=== PATIENT | male | born 1965 | race Two or more races ===

== ENCOUNTER 2017-08-18 11:14 | Inpatient (IN) | payer BC ==
[~2017-08-18] VITALS: Ht 165.1 cm; Wt 99.3 kg
[2017-08-18 11:37] LABS: Basophils # (auto) 0.1 uL; Basophils % (auto) 0.5 % (0.0-2.0); Eosinophils # (auto) 0.2 uL; Eosinophils % (auto) 1.3 % (0.0-7.0); Hematocrit 44.2 % (41.0-53.0); Hemoglobin 15.1 g/dL (13.5-17.5); Lymphocytes # (auto) 2.6 uL; Lymphocytes % (auto) 20.6 % (10.0-50.0); Mean Corpuscular Hemoglobin 29.7 pg (28.0-32.0); Mean Corpuscular Hgb Conc. 34.3 g/dL (32.0-36.0); Mean Corpuscular Volume 86.8 fL (80.0-100.0); Mean Platelet Volume 9.2 fL (6.9-10.8); Monocytes # (auto) 0.9 uL; Monocytes % (auto) 7.4 % (0.0-12.0); Neutrophils % (auto) 70.2 % (37.0-80.0); Nucleated Red Blood Cells % 0.1 %; Platelet Count (auto) 213 10^3/uL (140-450); White Blood Cell 12.8 10^3/uL (4.4-10.8)
[2017-08-18 11:46] LABS: INR 0.97 (0.9-1.15); Partial Thromboplastin Time 25.7 sec (22.64-33.71); Prothrombin Time 10.6 sec (9.37-12.3)
[2017-08-18] MEDS ORDERED: SODIUM CHLORIDE 0.9% 1,000 ML IV ONE (12:03)
[2017-08-18 12:15] LABS: Albumin 3.6 g/dL (3.4-5.0); BUN/Creatinine Ratio 8.7; Bilirubin, Total 1.3 mg/dL (0.2-1.0); Calcium 8.3 mg/dL (8.5-10.1); Potassium 3.1 mmol/L (3.5-5.1); Total Protein 7.8 g/dL (6.4-8.2)
[2017-08-18] MEDS ORDERED: HEPARIN SODIUM (PORCINE) 5000 UNITS/ML 1ML VIAL IV ONE (12:15)
[2017-08-18] MEDS ORDERED: cefTRIAXone 1GM/50ML D5W 50 ML IV ONE (12:30)
[2017-08-18 12:45] LABS: Urine Bilirubin Negative (Negative); Urine Blood Negative /uL (Negative); Urine Color Yellow (Yellow); Urine Glucose TRACE mg/dL (Normal); Urine Ketone Negative (Negative); Urine Nitrite Negative (Negative); Urine RBC 1 /hpf (0 - 3); Urine Squamous Epithelial Cell FEW /hpf (<5); Urine Urobilinogen Normal (Negative)
[2017-08-18] MEDS ORDERED: IODIXANOL 320MG/ML 100ML BTL IV ONE (13:57)
[2017-08-18] MEDS ORDERED: LIDOCAINE 2%HCL (LOCAL ANESTH.) INJ 20ML MDV ONE (13:57)
[2017-08-18] MEDS ORDERED: ACETAMINOPHEN 500 MG TAB PO PRN (14:00)
[2017-08-18] MEDS ORDERED: NITROGLYCERIN 0.4 MG SL TAB SL PRN ×2 (14:00→18:30)
[2017-08-18] MEDS ORDERED: PROMETHAZINE HCL 25 MG/ML 1ML IV PRN (14:00)
[2017-08-18] MEDS ORDERED: LORazepam 0.5 MG TAB PO PRN (14:00)
[2017-08-18] MEDS ORDERED: TEMAZEPAM 15 MG CAP PO PRN (14:00)
[2017-08-18] MEDS ORDERED: MORPHINE SULF INJ 2 MG/ML SYRINGE 1ML IV PRN ×3 (14:00→18:30)
[2017-08-18] MEDS ORDERED: HYDROcodone-ACET 5/325MG TAB PO PRN (14:00)
[2017-08-18] MEDS ORDERED: PANTOPRAZOLE 40 MG TAB PO ONE (14:15)
[2017-08-18] MEDS ORDERED: ENOXAPARIN SOD 100 MG/1 ML SYRINGE SC SCH (14:18)
[2017-08-18] MEDS ORDERED: ASPirin 81 mg TAB PO SCH (14:21)
[2017-08-18] MEDS ORDERED: SODIUM CHL 0.9% 50 ML ONE ×2 (15:00→16:15)
[2017-08-18] MEDS ORDERED: ANGIOMAX 250 MG VIAL IV ONE ×3 (15:00→16:15)
[2017-08-18] MEDS ORDERED: MIDAZOLAM HCL 1MG/1ML-2 ML VIAL ONE (15:02)
[2017-08-18] MEDS ORDERED: fentaNYL CITRATE 100 MCG/2 ML VL ONE (15:02)
[2017-08-18] MEDS ORDERED: IOHEXOL 350 MG/ML 100ML IJ ONE ×2 (15:11→15:47)
[2017-08-18] MEDS ORDERED: hydrALAZINE HCL 20 MG/ML VL ONE (15:31)
[2017-08-18] MEDS ORDERED: ASPirin-EC 325mg tab PO ONE (16:15)
[2017-08-18] MEDS ORDERED: CLOPIDOGREL BISULFATE 75 MG TAB PO ONE (16:15)
[2017-08-18] MEDS ORDERED: CLOPIDOGREL 300 MG TAB ONE (16:18)
[2017-08-18] MEDS ORDERED: ASPirin 325 MG TAB ONE (16:18)
[2017-08-18] MEDS ORDERED: NITROGLYCERIN 50MG/250ML 250 ML IV ONE (16:25)
[2017-08-18] MEDS ORDERED: KETOROLAC TROMETH 30 MG/ML 1ML VIAL ONE (17:52)
[2017-08-18] MEDS ORDERED: KETOROLAC TROMETH 30 MG/ML 1ML VIAL IV ONE (18:00)
[2017-08-18 19:46] VITALS: BP 147/90
[2017-08-18 20:00] VITALS: BP 147/90
[2017-08-18] MEDS: NITROGLYCERIN 0.2MG/HR TOPICAL PATCH TD SCH (20:49)
[2017-08-18] MEDS: METOPROLOL TARTRATE 25 MG TAB PO SCH ×2 (20:49→22:00)
[2017-08-18] MEDS: POTASSIUM CHL 20MEQ/100ML 100 ML IV SCH ×2 (20:55→20:56)
[2017-08-18] MEDS: SODIUM CHLOR 0.9% PF (SALINE LOCK) 10ML VIAL IV SCH ×3 (20:56→21:10)
[2017-08-18] MEDS ORDERED: POTASSIUM CHLORIDE 40 MEQ, LIDOCAINE 1% (LOCAL ANESTH.) 4 ML in SODIUM CHL 0.9% 250 ML IV ONE (21:00)
[2017-08-18] MEDS: ATORVASTATIN 20 MG TAB PO SCH (21:10)
[2017-08-19] VITALS: BP 130/82
[2017-08-19 04:00] VITALS: BP 115/70
[2017-08-19] MEDS: SODIUM CHLOR 0.9% PF (SALINE LOCK) 10ML VIAL IV SCH ×6 (06:00→21:44)
[2017-08-19 06:15] LABS: Basophils # (auto) 0 uL; Basophils % (auto) 0.2 % (0.0-2.0); Eosinophils # (auto) 0.1 uL; Eosinophils % (auto) 0.4 % (0.0-7.0); Hematocrit 41.5 % (41.0-53.0); Hemoglobin 14.3 g/dL (13.5-17.5); Lymphocytes # (auto) 1.7 uL; Lymphocytes % (auto) 10.3 % (10.0-50.0); Mean Corpuscular Hemoglobin 29.7 pg (28.0-32.0); Mean Corpuscular Hgb Conc. 34.4 g/dL (32.0-36.0); Mean Corpuscular Volume 86.4 fL (80.0-100.0); Mean Platelet Volume 9.7 fL (6.9-10.8); Monocytes # (auto) 1.3 uL; Monocytes % (auto) 7.7 % (0.0-12.0); Neutrophils # (auto) 13.4 uL; Neutrophils % (auto) 81.4 % (37.0-80.0); Platelet Count (auto) 203 10^3/uL (140-450); Red Cell Distribution Width 13.3 % (11.8-14.3); White Blood Cell 16.5 10^3/uL (4.4-10.8)
[2017-08-19 06:39] LABS: Albumin 3.4 g/dL (3.4-5.0); BUN/Creatinine Ratio 9.1; Calcium 8.4 mg/dL (8.5-10.1); Potassium 3.6 mmol/L (3.5-5.1); Total Protein 7.5 g/dL (6.4-8.2)
[2017-08-19 07:17] LABS: B-Type Natriuretic Peptide 186.46 pg/mL (0-100)
[2017-08-19 07:20] LABS: Temperature: 20.9 C (20.0-25.0)
[2017-08-19 08:00] VITALS: BP 109/94
[2017-08-19] MEDS ORDERED: ASPirin 81 mg TAB PO ONE (10:00)
[2017-08-19] MEDS ORDERED: CLOPIDOGREL BISULFATE 75 MG TAB PO ONE (10:00)
[2017-08-19] MEDS: PANTOPRAZOLE 40 MG TAB PO SCH (10:00)
[2017-08-19] MEDS: NITROGLYCERIN 0.2MG/HR TOPICAL PATCH TD SCH (10:00)
[2017-08-19] MEDS: ASPirin-EC 81 mg tab PO SCH (10:00)
[2017-08-19] MEDS: METOPROLOL TARTRATE 25 MG TAB PO SCH ×2 (10:00→21:45)
[2017-08-19] MEDS: CLOPIDOGREL BISULFATE 75 MG TAB PO SCH (10:00)
[2017-08-19 12:00] VITALS: BP 129/90
[2017-08-19 16:00] VITALS: BP 138/83
[2017-08-19] MEDS ORDERED: CEFTRIAXONE SODIUM 2 GM in D5W 5% 50 ML IV SCH ×5 (16:00→22:00)
[2017-08-19 18:12] LABS: Urine Bilirubin Negative (Negative); Urine Blood Negative /uL (Negative); Urine Color Yellow (Yellow); Urine Glucose Normal (Normal); Urine Ketone Negative (Negative); Urine Nitrite Negative (Negative); Urine RBC 1 /hpf (0 - 3); Urine pH 6.5 (5.0-8.0)
[2017-08-19 19:43] VITALS: BP 134/86
[2017-08-19] MEDS: ATORVASTATIN 20 MG TAB PO SCH (21:45)
[2017-08-20] VITALS: BP 128/77
[2017-08-20 04:00] VITALS: BP 134/88
[2017-08-20 04:38] LABS: Basophils # (auto) 0.1 uL; Basophils % (auto) 0.7 % (0.0-2.0); Eosinophils # (auto) 0.1 uL; Eosinophils % (auto) 0.8 % (0.0-7.0); Hematocrit 41.6 % (41.0-53.0); Hemoglobin 14.2 g/dL (13.5-17.5); Lymphocytes # (auto) 2.6 uL; Lymphocytes % (auto) 16.5 % (10.0-50.0); Mean Corpuscular Hemoglobin 29.7 pg (28.0-32.0); Mean Corpuscular Hgb Conc. 34.2 g/dL (32.0-36.0); Mean Corpuscular Volume 86.8 fL (80.0-100.0); Mean Platelet Volume 9.3 fL (6.9-10.8); Monocytes # (auto) 1.7 uL; Monocytes % (auto) 10.7 % (0.0-12.0); Neutrophils # (auto) 11.4 uL; Neutrophils % (auto) 71.3 % (37.0-80.0); Platelet Count (auto) 185 10^3/uL (140-450); Red Cell Distribution Width 13.2 % (11.8-14.3); White Blood Cell 15.9 10^3/uL (4.4-10.8)
[2017-08-20 05:01] LABS: BUN/Creatinine Ratio 12.2; Calcium 8.1 mg/dL (8.5-10.1); Potassium 3.7 mmol/L (3.5-5.1)
[2017-08-20] MEDS: SODIUM CHLOR 0.9% PF (SALINE LOCK) 10ML VIAL IV SCH ×4 (05:53→14:05)
[2017-08-20 08:00] VITALS: BP 129/87
[2017-08-20] MEDS: NITROGLYCERIN 0.2MG/HR TOPICAL PATCH TD SCH (09:52)
[2017-08-20] MEDS: PANTOPRAZOLE 40 MG TAB PO SCH (09:52)
[2017-08-20] MEDS: CLOPIDOGREL BISULFATE 75 MG TAB PO SCH (09:53)
[2017-08-20] MEDS: ASPirin-EC 81 mg tab PO SCH (09:53)
[2017-08-20] MEDS: METOPROLOL TARTRATE 25 MG TAB PO SCH ×2 (09:53→18:05)
[2017-08-20 12:00] VITALS: BP 113/71
[2017-08-20 16:00] VITALS: BP 113/78
[2017-08-20] MEDS ORDERED: ASP81EC PO ×2 (17:04→17:15)
[2017-08-20] MEDS ORDERED: MET25T PO ×2 (17:04→17:15)
[2017-08-20] MEDS ORDERED: ATOR20TA50 PO ×2 (17:04→17:15)
[2017-08-20] MEDS ORDERED: CLOP75TA28 PO ×2 (17:04→17:15)
[2017-08-20 17:20] VITALS: BP 113/78
== END 2017-08-20 18:28 | disposition home health service (06) | DRG 247 ==
LOC: ER 11:14 → DOU IN ICU 11:15
PROVIDERS: ADMIT Internal Medicine Cardiovascular Disease; ATTEND Internal Medicine
PROC: 027034Z Dilation of Coronary Artery, One Artery with Drug-eluting Intraluminal Device, Percutaneous Approach (ICD-10-PCS; principal; 2017-08-18)
PROC: B2151ZZ Fluoroscopy of Left Heart using Low Osmolar Contrast (ICD-10-PCS; 2017-08-18)
PROC: 4A023N7 Measurement of Cardiac Sampling and Pressure, Left Heart, Percutaneous Approach (ICD-10-PCS; 2017-08-18)
PROC: B2111ZZ Fluoroscopy of Multiple Coronary Arteries using Low Osmolar Contrast (ICD-10-PCS; 2017-08-18)
PROC: B41F1ZZ Fluoroscopy of Right Lower Extremity Arteries using Low Osmolar Contrast (ICD-10-PCS; 2017-08-18)
DX: I21.4 Non-ST elevation (NSTEMI) myocardial infarction (principal); I25.82 Chronic total occlusion of coronary artery; I10 Essential (primary) hypertension; E66.9 Obesity, unspecified; Z68.36 Body mass index [BMI] 36.0-36.9, adult; E78.00 Pure hypercholesterolemia, unspecified; E78.5 Hyperlipidemia, unspecified; F17.210 Nicotine dependence, cigarettes, uncomplicated; I25.10 Atherosclerotic heart disease of native coronary artery without angina pectoris; I25.2 Old myocardial infarction; Z79.02 Long term (current) use of antithrombotics/antiplatelets; Z79.82 Long term (current) use of aspirin; Z95.5 Presence of coronary angioplasty implant and graft
CPT/HCPCS: 36415; 71010; 71020; 73020; 76705; 80048; 80053; 80061; 80074; 80307; 81001; 82550; 83880; 84484; 85025; 85610; 85652; 85730; 86141; 86850; 86900; 86901; 87040; 87081; 93005; 93306; 96361; 96365; 96375; 99152; 99153; C1874; J0696; J1885; J2001; J2250; J7060; Q9967

== ENCOUNTER 2017-08-22 20:58 | Emergency (ER) | payer BC ==
[~2017-08-22] VITALS: Ht 172.7 cm; Wt 108.9 kg
[~2017-08-22 20:58] MED LIST: ASP81EC PO; ATOR20TA50 PO; CLOP75TA28 PO; MET25T PO
[2017-08-22 21:02] VITALS: BP 0/0
== END 2017-08-23 03:22 | disposition expired ==
LOC: ER 20:59
DX: I46.9 Cardiac arrest, cause unspecified (principal); I25.2 Old myocardial infarction; F17.210 Nicotine dependence, cigarettes, uncomplicated; Z79.899 Other long term (current) drug therapy
CPT/HCPCS: 92950